=== PATIENT | female | born 1995 | race Caucasian/White ===

== ENCOUNTER → 2021-01-20 11:58 | Outpatient (CLI) | payer BC, SELFPAY ==
[2021-01-20 13:06] LABS: Add Manual Diff / Slide Review NO; Basophils Absolute Auto 0 /uL (0-100); Basophils Percent Auto 0.2 % (0-2); Eosinophils Absolute Auto 100 /uL (0-450); Eosinophils Percent Auto 0.7 % (2-4); Hematocrit 36.1 % (36-46); Hemoglobin 12.2 g/dL (12.0-16.0); Lymphocytes Absolute Auto 2200 /uL (1100-4500); Lymphocytes Percent Auto 15.9 % (25-40); Mean Corpuscular HGB Conc 33.8 % (30-36); Mean Corpuscular Hemoglobin 30.2 PG (26-34); Mean Corpuscular Volume 89.3 fL (80-100); Monocytes Absolute Auto 800 /uL (0-900); Neutrophils Absolute Auto 10600 /uL (1500-7000); Neutrophils Percent Auto 77.2 % (50-75); Platelet Count 234 X10^3/uL (150-400); Red Blood Cell Count 4.04 X10^6/uL (4.0-5.2); Red Cell Distribution Width 12.8 % (11.6-14.8); White Blood Cell Count 13.8 X10^3/uL (4.5-11.0)
[2021-01-20 13:18] LABS: Alanine Aminotransferase 17 IU/L (<35); Albumin 3.8 g/dL (3.5-5.0); Albumin Globulin Ratio 1.2 (1.0-2.8); Alkaline Phosphatase 119 U/L (38-126); Aspartate Aminotransferase 24 IU/L (14-36); BUN Creatinine Ratio 12.8 (6-22); Bilirubin Total 0.2 mg/dL (0.2-1.3); Blood Urea Nitrogen 5 mg/dL (7-17); Calcium 9.2 mg/dL (8.4-10.2); Carbon Dioxide 23 mmol/L (22-32); Chloride 104 mmol/L (98-107); Estimated Glomerular Filt Rate > 60.0 mL/min (>60); Globulin 3.3 g/dL (1.7-4.1); Glucose 88 mg/dL (70-100); HEMOLYSIS < 15 (0-50); Potassium 4.2 mmol/L (3.4-5.1); Sodium 136 mmol/L (137-145); Total Protein 7.1 g/dL (6.3-8.2)
[2021-01-20 15:33] LABS: Creatinine Urine Random 83.1 mg/dL; Protein (Total) Urine Random 13 mg/dL (0-12); Protein Creatinine Ratio Urine 0.15 GRAM/24H
== END ==
PROVIDERS: PCP Family Medicine; Referring Provider Family Medicine; Visit Provider Family Medicine
DX: Z34.03 Encounter for supervision of normal first pregnancy, third trimester (principal); H53.9 Unspecified visual disturbance; R51.9 Headache, unspecified; Z3A.30 30 weeks gestation of pregnancy
CPT/HCPCS: 36415; 80053; 82570; 84156; 85025

== ENCOUNTER 2021-02-19 15:50 | Observation (INO) | payer OTHER, SELFPAY ==
[2021-02-19 17:31] LABS: Alanine Aminotransferase 16 IU/L (<35); Albumin 3.4 g/dL (3.5-5.0); Albumin Globulin Ratio 1.2 (1.0-2.8); Alkaline Phosphatase 127 U/L (38-126); Aspartate Aminotransferase 28 IU/L (14-36); BUN Creatinine Ratio 11.1 (6-22); Bilirubin Total 0.2 mg/dL (0.2-1.3); Blood Urea Nitrogen 4 mg/dL (7-17); Calcium 8.5 mg/dL (8.4-10.2); Carbon Dioxide 22 mmol/L (22-32); Chloride 107 mmol/L (98-107); Estimated Glomerular Filt Rate > 60.0 mL/min (>60); Globulin 2.9 g/dL (1.7-4.1); Glucose 102 mg/dL (70-100); HEMOLYSIS < 15 (0-50); Potassium 3.6 mmol/L (3.4-5.1); Sodium 136 mmol/L (137-145); Total Protein 6.3 g/dL (6.3-8.2); Uric Acid 3.9 mg/dL (2.5-6.2)
--- NOTE | 2021-02-19 17:32 | P.TNLD_ITS ---
Visit Information Visit Information Date of evaluation: 02/19/21 Primary OB Provider: Mindi Osman Reason for Evaluation: Yes other Comments/Additional reasons for admission: 25yo at 34w4d here due to headache and elevated blood pressure. Pt reports that she continues to have intermittent headaches. This afternoon it was more severe. She took her blood pressure, as was requested in clinic, and it was 143/65. She denies any sign ificant vision changes today. Mild swelling. No RUQ pain. She is feeling her baby move regularly. No vaginal bleeding or LOF. [facility] Medical History (Updated 02/21/21 @ 15:57 by Mindi Osman MD) Back pain (~2011) Benign neoplasm of skin (~2013) Bursitis of left elbow (~2016) Kalani infection (~2020) Carpal tunnel syndrome, bilateral (~2014) Constipation (~2020) GERD (gastroesophageal reflux disease) (~2009) Migraine (~2009) Mild scoliosis (~2013) Nasal polyp (~2013) Otitis media, unspecified, bilateral Restless leg syndrome (~2020) Verruca vulgaris Wrist fracture Surgical History (Updated 01/03/21 @ 15:39 by Trudy Solo RN) History of nasal surgery (~2013) [place] teeth extracted Family History (Updated 01/03/21 @ 15:55 by Trudy Solo RN) Mother Hypertension Diverticulitis H/O: hysterectomy Father Skin cancer (melanoma) Alcohol abuse Drug abuse Grandmother Diabetes mellitus Grandfather Kidney failure Dialysis patient Diabetes mellitus Stroke Grandmother Breast cancer Grandfather Cancer of nasal cavities Basal cell carcinoma Lung cancer Brother Drug abuse ADHD Depression Social History marital status: unmarried,living together household members: significant other lives independently: Yes caregiver/support person: No housing: house pets and animals: No education level: college (AA degree) 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. ) current occupational exposures/hazards: Yes ([employer]. ) special juan josé needs: No seatbelt use: always do you feel safe at home: Yes Smoking Status: Former smoker (Quit with . Had been 10 cigs/day.) Tobacco: How many years used: 9 quit status: has quit before second hand exposure: No alcohol intake: never substance use type: does not use during the past year weight has: remained stable well-balanced diet: daily or most days daily servings fruits/ve-4 caffeine: Yes (2-3 cups of coffee many days, sometimes less. 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 ) frequency: does not exercise Objective Labs Result Diagrams: 02/19/21 16:35 02/19/21 16:35 Evaluation Evaluation Baseline heart rate: 145 Variability: Moderate (11-25) monitor accelerations: Present Monitor Decelerations: Absent Category of Tracing: Reactive Diagnosis, Plan/Disposition Final Diagnosis (1) 34 weeks gestation of : Status: Acute (2) Headache: Status: Acute (3) Elevated blood pressure affecting in third trimester, antepartum: Status: Acute Plan/Disposition Plan: 25yo at 34w4d here for headache and elevated blood pressure reading at home. Normal BPs while here, all in the 110s/60-70s. Symptoms improved. Lab work without evidence pre-eclampsia/HELLP. Stable for d/c home. Recommend checking BPs at home daily. Pt aware of values that prompt additional evaluation. Discussed symptoms to be aware of. OB Disposition: home
[2021-02-19 18:02] LABS: RBC Urine None Seen (0-5/HPF)
[2021-02-19 18:03] LABS: Appearance Urine UA CLEAR; Bilirubin Urine UA NEGATIVE (NEGATIVE); Color Urine UA YELLOW; Glucose Urine UA NEGATIVE (Negative); Ketones Urine UA TRACE (NEGATIVE); Leukocyte Esterase Urine UA NEGATIVE (NEGATIVE); Nitrite Urine UA NEGATIVE (Negative); Occult Blood Urine UA NEGATIVE (Negative); Protein Urine UA NEGATIVE (Negative); Specific Gravity Urine UA <=1.005 (1.000-1.035); Urobilinogen Urine UA 0.2 E.U./dL (0.2)
[2021-02-19 18:23] LABS: Bacteria Urine Few (2-10); Culture Indicated Urine Cult Not Indicated; Squamous Epithelial Cell Urine 5-10 /HPF (0-5/HPF); WBC Urine 0-1/HPF (0-5/HPF)
[2021-02-19 19:10] LABS: Add Manual Diff / Slide Review NO; Basophils Absolute Auto 0 /uL (0-100); Basophils Percent Auto 0.2 % (0-2); Eosinophils Absolute Auto 100 /uL (0-450); Eosinophils Percent Auto 0.4 % (2-4); Hematocrit 31.6 % (36-46); Hemoglobin 10.9 g/dL (12.0-16.0); Lymphocytes Absolute Auto 2300 /uL (1100-4500); Lymphocytes Percent Auto 15.4 % (25-40); Mean Corpuscular HGB Conc 34.6 % (30-36); Mean Corpuscular Hemoglobin 30.4 PG (26-34); Mean Corpuscular Volume 87.7 fL (80-100); Monocytes Absolute Auto 800 /uL (0-900); Monocytes Percent Auto 5.4 % (3-14); Neutrophils Absolute Auto 11500 /uL (1500-7000); Neutrophils Percent Auto 78.6 % (50-75); Platelet Count 216 X10^3/uL (150-400); Red Cell Distribution Width 12.8 % (11.6-14.8); White Blood Cell Count 14.7 X10^3/uL (4.5-11.0)
[2021-02-19 20:24] LABS: Creatinine Urine Random 52.9 mg/dL; Protein (Total) Urine Random 9 mg/dL (0-12); Protein Creatinine Ratio Urine 0.17 GRAM/24H
== END 2021-02-19 19:40 | disposition home or self-care (01) ==
PROVIDERS: Admitting Provider Family Medicine; PCP Family Medicine; Referring Provider Family Medicine; Visit Provider Family Medicine
DX: O13.3 Gestational [pregnancy-induced] hypertension without significant proteinuria, third trimester (principal); O26.893 Other specified pregnancy related conditions, third trimester; R51.9 Headache, unspecified; Z3A.34 34 weeks gestation of pregnancy
CPT/HCPCS: 59025; 80053; 81001; 82570; 84156; 84550; 85025; 96360; G0378; G0379

== ENCOUNTER 2021-02-23 18:50 | Outpatient (CLI) | payer OTHER, SELFPAY ==
--- NOTE | 2021-02-24 07:49 | PM.OBTRLD ---
Visit Information Visit Information Date of evaluation: 02/23/21 Primary OB Provider: Mindi Osman On-call OB Provider: Lana Ramírez [facility] Medical History (Updated 02/21/21 @ 15:57 by Mindi Osman MD) Back pain (~2011) Benign neoplasm of skin (~2013) Bursitis of left elbow (~2016) Kalani infection (~2020) Carpal tunnel syndrome, bilateral (~2014) Constipation (~2020) GERD (gastroesophageal reflux disease) (~2009) Migraine (~2009) Mild scoliosis (~2013) Nasal polyp (~2013) Otitis media, unspecified, bilateral Restless leg syndrome (~2020) Verruca vulgaris Wrist fracture Surgical History (Updated 01/03/21 @ 15:39 by Trudy Solo RN) History of nasal surgery (~2013) [place] teeth extracted Family History (Updated 01/03/21 @ 15:55 by Trudy Solo RN) Mother Hypertension Diverticulitis H/O: hysterectomy Father Skin cancer (melanoma) Alcohol abuse Drug abuse Grandmother Diabetes mellitus Grandfather Kidney failure Dialysis patient Diabetes mellitus Stroke Grandmother Breast cancer Grandfather Cancer of nasal cavities Basal cell carcinoma Lung cancer Brother Drug abuse ADHD Depression Social History marital status: unmarried,living together household members: significant other lives independently: Yes caregiver/support person: No housing: house pets and animals: No education level: college (AA degree) 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 ) current occupational exposures/hazards: Yes ([employer]. ) special juan josé needs: No seatbelt use: always do you feel safe at home: Yes Smoking Status: Former smoker (Quit with . Had been 10 cigs/day.) Tobacco: How many years used: 9 quit status: has quit before second hand exposure: No alcohol intake: never substance use type: does not use during the past year weight has: remained stable well-balanced diet: daily or most days daily servings fruits/ve-4 caffeine: Yes (2-3 cups of coffee many days, sometimes less. 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 ) frequency: does not exercise Review of Systems Review of Systems Narrative: Patient called complaining of elevated blood pressures at home and headache. She comes to Labor and delivery for a nonstress test and blood pressure check. Exam Narrative Exam Narrative: Blood pressures in the 110s over 70s Evaluation Evaluation Baseline heart rate: 140 Variability: Average (6-10) monitor accelerations: Present (X1) Monitor Decelerations: Absent Diagnosis, Plan/Disposition Plan/Disposition Plan: Assessment: 25-year-old 1 para 0 at 35 weeks gestation with gestational hypertension Blood pressure is normal here on Labor and delivery Plan: Signs and symptoms of preeclampsia reviewed OB Disposition: home
== END 2021-02-23 19:47 | disposition home or self-care (01) ==
LOC: OB 02-26 15:06
PROVIDERS: PCP Family Medicine; Referring Provider Obstetrics & Gynecology; Visit Provider Obstetrics & Gynecology
DX: O13.3 Gestational [pregnancy-induced] hypertension without significant proteinuria, third trimester (principal); Z3A.35 35 weeks gestation of pregnancy
CPT/HCPCS: 59025; G0378; G0379

== ENCOUNTER 2021-02-24 10:27 | Outpatient (CLI) | payer OTHER, SELFPAY | END 2021-02-24 11:03 | disposition home or self-care (01) | LOC: LABOR 10:52 → OB 02-26 15:06 | PROVIDERS: PCP Family Medicine; Referring Provider Obstetrics & Gynecology; Visit Provider Obstetrics & Gynecology | DX: O26.893 Other specified pregnancy related conditions, third trimester (principal); M54.5 Low back pain; Z3A.35 35 weeks gestation of pregnancy | CPT/HCPCS: 59025; G0378; G0379 ==

== ENCOUNTER 2021-02-27 15:21 | Outpatient (CLI) | payer OTHER, SELFPAY ==
--- NOTE | 2021-02-27 16:58 | PM.OBTRLD ---
Visit Information Visit Information Date of evaluation: 02/27/21 Primary OB Provider: Mindi Osman Reason for Evaluation: Yes non-stress test non-stress test reason: hypertension/pre-eclampsia Comments/Additional reasons for admission: 25yo at 35w4d who presented for NST due to elevated blood pressures at home, likely gestational hypertension. Pt has been having intermittent headaches, none currently. Swelling is stable. No vision changes or RUQ pain. She is feeling her baby move regularly. No LOF or vaginal bleeding. COUNTS INCLUDE 234 BEDS AT [facility] Medical History (Updated 02/28/21 @ 09:51 by Mindi Osman MD) Back pain (~2011) Benign neoplasm of skin (~2013) Bursitis of left elbow (~2016) Kalani infection (~2020) Carpal tunnel syndrome, bilateral (~2014) Constipation (~2020) GERD (gastroesophageal reflux disease) (~2009) Migraine (~2009) Mild scoliosis (~2013) Nasal polyp (~2013) Otitis media, unspecified, bilateral Restless leg syndrome (~2020) Verruca vulgaris Wrist fracture Surgical History (Updated 01/03/21 @ 15:39 by Trudy Solo RN) History of nasal surgery (~2013) [place] teeth extracted Family History (Updated 01/03/21 @ 15:55 by Trudy Solo RN) Mother Hypertension Diverticulitis H/O: hysterectomy Father Skin cancer (melanoma) Alcohol abuse Drug abuse Grandmother Diabetes mellitus Grandfather Kidney failure Dialysis patient Diabetes mellitus Stroke Grandmother Breast cancer Grandfather Cancer of nasal cavities Basal cell carcinoma Lung cancer Brother Drug abuse ADHD Depression Social History marital status: unmarried,living together household members: significant other lives independently: Yes caregiver/support person: No housing: house pets and animals: No education level: college (AA degree) occupational status: employed (MA at [employer], [employer]. ) current occupational exposures/hazards: Yes ([employer]. ) special juan josé needs: No seatbelt use: always do you feel safe at home: Yes Smoking Status: Former smoker (Quit with . Had been 10 cigs/day.) Tobacco: How many years used: 9 quit status: has quit before second hand exposure: No alcohol intake: never substance use type: does not use during the past year weight has: remained stable well-balanced diet: daily or most days daily servings fruits/ve-4 caffeine: Yes (2-3 cups of coffee many days, sometimes less. 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 ) frequency: does not exercise Evaluation Evaluation Baseline heart rate: 150 Variability: Moderate (11-25) monitor accelerations: Present Monitor Decelerations: Absent Diagnosis, Plan/Disposition Final Diagnosis (1) Elevated blood pressure affecting in third trimester, antepartum: Status: Acute (2) 35 weeks gestation of : Status: Acute Plan/Disposition Plan: 25yo at 35w4d who presented for NST due to elevated blood pressures at home, likely gestational hypertension. Reactive NST. Labs from earlier this week negative. Recommend continuing to check BPs at home regularly. F/U scheduled for 3 days. Will review BPs at that time. If any elevated, plan to diagnose with gHTN - obtain weekly labs, biweekly NST, growth scan, plan for IOL at 37 weeks. OB Disposition: home
== END 2021-02-27 15:50 | disposition home or self-care (01) ==
LOC: LABOR 15:23 → OB 02-28 08:46
PROVIDERS: PCP Family Medicine; Referring Provider Family Medicine; Visit Provider Family Medicine
DX: O26.893 Other specified pregnancy related conditions, third trimester (principal); R03.0 Elevated blood-pressure reading, without diagnosis of hypertension; Z3A.35 35 weeks gestation of pregnancy
CPT/HCPCS: 59025; G0378; G0379

== ENCOUNTER → 2021-02-28 15:57 | Outpatient (CLI) | payer OTHER, SELFPAY ==
[2021-02-28 16:13] LABS: Add Manual Diff / Slide Review NO; Basophils Absolute Auto 0 /uL (0-100); Basophils Percent Auto 0.1 % (0-2); Eosinophils Absolute Auto 100 /uL (0-450); Eosinophils Percent Auto 0.5 % (2-4); Hematocrit 32.8 % (36-46); Hemoglobin 11.3 g/dL (12.0-16.0); Lymphocytes Absolute Auto 1900 /uL (1100-4500); Lymphocytes Percent Auto 15.3 % (25-40); Mean Corpuscular HGB Conc 34.6 % (30-36); Mean Corpuscular Hemoglobin 30.2 PG (26-34); Mean Corpuscular Volume 87.3 fL (80-100); Monocytes Absolute Auto 600 /uL (0-900); Monocytes Percent Auto 5.1 % (3-14); Neutrophils Absolute Auto 9700 /uL (1500-7000); Platelet Count 222 X10^3/uL (150-400); Red Blood Cell Count 3.75 X10^6/uL (4.0-5.2); Red Cell Distribution Width 12.8 % (11.6-14.8); White Blood Cell Count 12.3 X10^3/uL (4.5-11.0)
[2021-02-28 17:21] LABS: Alanine Aminotransferase 14 IU/L (<35); Albumin 3.3 g/dL (3.5-5.0); Albumin Globulin Ratio 1.1 (1.0-2.8); Alkaline Phosphatase 116 U/L (38-126); Aspartate Aminotransferase 25 IU/L (14-36); BUN Creatinine Ratio 11.1 (6-22); Bilirubin Total 0.2 mg/dL (0.2-1.3); Blood Urea Nitrogen 5 mg/dL (7-17); Calcium 8.5 mg/dL (8.4-10.2); Carbon Dioxide 23 mmol/L (22-32); Chloride 107 mmol/L (98-107); Estimated Glomerular Filt Rate > 60.0 mL/min (>60); Glucose 123 mg/dL (70-100); HEMOLYSIS < 15 (0-50); Potassium 3.8 mmol/L (3.4-5.1); Sodium 137 mmol/L (137-145); Total Protein 6.3 g/dL (6.3-8.2)
[2021-02-28 17:57] LABS: Creatinine Urine Random 55.8 mg/dL; Protein (Total) Urine Random 11 mg/dL (0-12); Protein Creatinine Ratio Urine 0.19 GRAM/24H
== END ==
PROVIDERS: PCP Family Medicine; Referring Provider Family Medicine; Visit Provider Family Medicine
DX: Z34.90 Encounter for supervision of normal pregnancy, unspecified, unspecified trimester (principal); Z3A.35 35 weeks gestation of pregnancy
CPT/HCPCS: 36415; 80053; 82570; 84156; 85025

== ENCOUNTER → 2021-03-03 07:12 | Outpatient (CLI) | payer OTHER, SELFPAY ==
--- NOTE | 2021-03-03 07:13 | DI.US.S_ITS ---
PROCEDURE: US OB LIMITED INDICATIONS: EFW OUTSIDE/PRIOR DATING DATA: Last menstrual period (LMP): 06/23/2020. LMP-based estimated date of delivery (NICOLE): 03/30/2021. First dating scan (date and location): 08/26/2020. Estimated date of delivery (NICOLE) from first dating scan: 03/29/2021. TECHNIQUE: Real-time scanning was performed of the fetus, with biometry and image documentation. Endovaginal scanning: Not performed COMPARISON: [facility], US, US OB LIMITED, 11/26/2020, 14:44. FINDINGS: A single living intrauterine gestation is present. Presentation: Vertex. Placenta: Placental position is posterior, without previa. Amniotic fluid index: 15.4 cm, normal range is 5-24 cm. heart rate: 145 beats per minute. Maternal cervical canal: Not seen. BPD: 9.6 cm, 39 weeks 3 days. 99th percentile. HC: 35.2 cm, 41 weeks 0 days. 99th percentile. AC: 34.5 cm, 38 weeks 3 days. 97th percentile. FL: 7.1 cm, 36 weeks 3 days. 50th percentile. Estimated gestational age from initial scan: 36 weeks 2 days. Estimated gestational age from today's scan: 38 weeks 6 days. Estimated weight and percentile: 3470 g, 96 percentile. IMPRESSION: 1. Jung living intrauterine at 38 weeks 6 days based on today's ultrasound. This is concordant with the 1st trimester ultrasound +/-3 weeks. Fetus is in the 96 percentile for weight. Concern for macrosomia. Vertex position. 2. Normal placenta and amniotic fluid. Dictated by: Radu Madrid M.D. on 03/19/2021 at 8:12 Approved by: Radu Madrid M.D. on 03/19/2021 at 8:20
[2021-03-03 08:28] LABS: Collection Time Urine 24 Hours; Protein (Total) Urine Random 13 mg/dL (0-12); Total Protein 24 Hour Urine 377 mg/day (42-225); Total Volume Urine 2900 mL
== END ==
PROVIDERS: PCP Family Medicine; Referring Provider Family Medicine; Visit Provider Family Medicine
DX: Z3A.35 35 weeks gestation of pregnancy (principal)
CPT/HCPCS: 76815; 84156

== ENCOUNTER → 2021-03-03 11:12 | Outpatient (CLI) | payer OTHER, SELFPAY ==
[2021-03-04 07:58] LABS: Strep Grp B PCR NEG for Grp B Strep
== END ==
PROVIDERS: PCP Family Medicine; Visit Provider Family Medicine
DX: Z34.93 Encounter for supervision of normal pregnancy, unspecified, third trimester (principal); Z3A.35 35 weeks gestation of pregnancy
CPT/HCPCS: 87653

== ENCOUNTER 2021-03-03 11:44 | Outpatient (CLI) | payer OTHER, SELFPAY ==
--- NOTE | 2021-03-03 13:04 | P.TNLD_ITS ---
Visit Information Visit Information Date of evaluation: 03/03/21 Primary OB Provider: Mindi Osman Reason for Evaluation: Yes non-stress test non-stress test reason: hypertension/pre-eclampsia Comments/Additional reasons for admission: 25yo at 36w2d who presents for NST for pre-eclampsia without severe features. The pt denies any worsening headaches or swelling, RUQ pain, or vision changes. She is feeling her baby move regularly. No LOF or vaginal bleeding. [facility] Medical History (Updated 03/03/21 @ 13:08 by Mindi Osman MD) Back pain (~2011) Benign neoplasm of skin (~2013) Bursitis of left elbow (~2016) Kalani infection (~2020) Carpal tunnel syndrome, bilateral (~2014) Constipation (~2020) GERD (gastroesophageal reflux disease) (~2009) Migraine (~2009) Mild scoliosis (~2013) Nasal polyp (~2013) Otitis media, unspecified, bilateral Restless leg syndrome (~2020) Verruca vulgaris Wrist fracture Surgical History (Updated 01/03/21 @ 15:39 by Trudy Solo RN) History of nasal surgery (~2013) [place] teeth extracted Family History (Updated 01/03/21 @ 15:55 by Trudy Solo RN) Mother Hypertension Diverticulitis H/O: hysterectomy Father Skin cancer (melanoma) Alcohol abuse Drug abuse Grandmother Diabetes mellitus Grandfather Kidney failure Dialysis patient Diabetes mellitus Stroke Grandmother Breast cancer Grandfather Cancer of nasal cavities Basal cell carcinoma Lung cancer Brother Drug abuse ADHD Depression Social History marital status: unmarried,living together household members: significant other lives independently: Yes caregiver/support person: No housing: house pets and animals: No education level: college (AA degree) 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 ) current occupational exposures/hazards: Yes ([employer]. ) special juan josé needs: No seatbelt use: always do you feel safe at home: Yes Smoking Status: Former smoker (Quit with . Had been 10 cigs/day.) Tobacco: How many years used: 9 quit status: has quit before second hand exposure: No alcohol intake: never substance use type: does not use during the past year weight has: remained stable well-balanced diet: daily or most days daily servings fruits/ve-4 caffeine: Yes (2-3 cups of coffee many days, sometimes less. 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 ) frequency: does not exercise Evaluation Evaluation Baseline heart rate: 150 Variability: Moderate (11-25) monitor accelerations: Present Monitor Decelerations: Absent Category of Tracing: Reactive Diagnosis, Plan/Disposition Final Diagnosis (1) 36 weeks gestation of : Status: Acute (2) Pre-eclampsia: Status: Acute Plan/Disposition Plan: 25yo at 36w2d who presents for NST for pre-eclampsia without severe features. NST reactive. Plan for repeat NST on 03/06 with labs at that time. Pt monitoring BPs at home. OB Disposition: home
== END 2021-03-03 12:35 | disposition home or self-care (01) ==
LOC: LABOR 12:14 → OB 03-04 07:44
PROVIDERS: PCP Family Medicine; Referring Provider Family Medicine; Visit Provider Family Medicine
DX: O14.03 Mild to moderate pre-eclampsia, third trimester (principal); O47.03 False labor before 37 completed weeks of gestation, third trimester; Z3A.36 36 weeks gestation of pregnancy; Z34.93 Encounter for supervision of normal pregnancy, unspecified, third trimester; Z3A.35 35 weeks gestation of pregnancy
CPT/HCPCS: 59025; 76815; 84156; 87653; G0378; G0379

== ENCOUNTER 2021-03-06 10:02 | Observation (INO) | payer OTHER, SELFPAY ==
--- NOTE | 2021-03-06 10:39 | PM.OBTRLD ---
Visit Information Visit Information Date of evaluation: 03/06/21 Primary OB Provider: Mindi Osman Reason for Evaluation: Yes non-stress test non-stress test reason: hypertension/pre-eclampsia Comments/Additional reasons for admission: 25yo at 36w5d here for NST for pre-eclampsia without severe features. Pt denies headache, vision changes, worsening LE edema, RUQ abdominal pain. She is feeling her baby move regularly. No LOF or vaginal bleeding. [facility] Medical History (Updated 03/03/21 @ 13:08 by Mindi Osman MD) Back pain (~2011) Benign neoplasm of skin (~2013) Bursitis of left elbow (~2016) Kalani infection (~2020) Carpal tunnel syndrome, bilateral (~2014) Constipation (~2020) GERD (gastroesophageal reflux disease) (~2009) Migraine (~2009) Mild scoliosis (~2013) Nasal polyp (~2013) Otitis media, unspecified, bilateral Restless leg syndrome (~2020) Verruca vulgaris Wrist fracture Surgical History (Updated 01/03/21 @ 15:39 by Trudy Solo RN) History of nasal surgery (~2013) [place] teeth extracted Family History (Updated 01/03/21 @ 15:55 by Trudy Solo RN) Mother Hypertension Diverticulitis H/O: hysterectomy Father Skin cancer (melanoma) Alcohol abuse Drug abuse Grandmother Diabetes mellitus Grandfather Kidney failure Dialysis patient Diabetes mellitus Stroke Grandmother Breast cancer Grandfather Cancer of nasal cavities Basal cell carcinoma Lung cancer Brother Drug abuse ADHD Depression Social History marital status: unmarried,living together household members: significant other lives independently: Yes caregiver/support person: No housing: house pets and animals: No education level: college (AA degree) 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 ) current occupational exposures/hazards: Yes ([employer]. ) special juan josé needs: No seatbelt use: always do you feel safe at home: Yes Smoking Status: Former smoker (Quit with . Had been 10 cigs/day.) Tobacco: How many years used: 9 quit status: has quit before second hand exposure: No alcohol intake: never substance use type: does not use during the past year weight has: remained stable well-balanced diet: daily or most days daily servings fruits/ve-4 caffeine: Yes (2-3 cups of coffee many days, sometimes less. 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 ) frequency: does not exercise Evaluation Evaluation Baseline heart rate: 150 Variability: Moderate (11-25) monitor accelerations: Present Monitor Decelerations: Absent Category of Tracing: Reactive Diagnosis, Plan/Disposition Final Diagnosis (1) Pre-eclampsia: Status: Acute (2) 36 weeks gestation of : Status: Acute Plan/Disposition Plan: 25yo at 36w5d here for NST for pre-eclampsia without severe features. NST reactive. Labs without evidence of HELLP. IOL scheduled for 37w1d. OB Disposition: home
[2021-03-06 11:11] LABS: Add Manual Diff / Slide Review NO; Basophils Absolute Auto 0 /uL (0-100); Basophils Percent Auto 0.3 % (0-2); Eosinophils Absolute Auto 100 /uL (0-450); Eosinophils Percent Auto 0.5 % (2-4); Hemoglobin 10.6 g/dL (12.0-16.0); Lymphocytes Absolute Auto 1700 /uL (1100-4500); Lymphocytes Percent Auto 14.9 % (25-40); Mean Corpuscular HGB Conc 34.3 % (30-36); Mean Corpuscular Hemoglobin 29.6 PG (26-34); Mean Corpuscular Volume 86.2 fL (80-100); Monocytes Absolute Auto 800 /uL (0-900); Monocytes Percent Auto 7.1 % (3-14); Neutrophils Absolute Auto 8900 /uL (1500-7000); Neutrophils Percent Auto 77.2 % (50-75); Platelet Count 212 X10^3/uL (150-400); Red Blood Cell Count 3.59 X10^6/uL (4.0-5.2); White Blood Cell Count 11.5 X10^3/uL (4.5-11.0)
[2021-03-06 11:27] LABS: Alanine Aminotransferase 14 IU/L (<35); Albumin 3.3 g/dL (3.5-5.0); Albumin Globulin Ratio 1.1 (1.0-2.8); Alkaline Phosphatase 115 U/L (38-126); Aspartate Aminotransferase 26 IU/L (14-36); BUN Creatinine Ratio 11.4 (6-22); Bilirubin Total 0.2 mg/dL (0.2-1.3); Blood Urea Nitrogen 5 mg/dL (7-17); Carbon Dioxide 23 mmol/L (22-32); Chloride 107 mmol/L (98-107); Estimated Glomerular Filt Rate > 60.0 mL/min (>60); Glucose 107 mg/dL (70-100); HEMOLYSIS < 15 (0-50); Potassium 3.8 mmol/L (3.4-5.1); Sodium 135 mmol/L (137-145); Total Protein 6.3 g/dL (6.3-8.2)
== END 2021-03-06 11:46 | disposition home or self-care (01) ==
PROVIDERS: Admitting Provider Family Medicine; PCP Family Medicine; Referring Provider Family Medicine; Visit Provider Family Medicine
DX: O14.03 Mild to moderate pre-eclampsia, third trimester (principal); Z3A.36 36 weeks gestation of pregnancy
CPT/HCPCS: 59025; 80053; 85025; G0378; G0379

== ENCOUNTER 2021-03-10 17:45 | Inpatient (IN) | payer OTHER, SELFPAY ==
[2021-03-10 18:09] VITALS: BP 143/76
[2021-03-10 18:44] LABS: Add Manual Diff / Slide Review NO; Basophils Absolute Auto 0 /uL (0-100); Basophils Percent Auto 0.1 % (0-2); Eosinophils Absolute Auto 0 /uL (0-450); Eosinophils Percent Auto 0.3 % (2-4); Hematocrit 33.3 % (36-46); Hemoglobin 11.5 g/dL (12.0-16.0); Lymphocytes Absolute Auto 2200 /uL (1100-4500); Lymphocytes Percent Auto 14.7 % (25-40); Mean Corpuscular HGB Conc 34.4 % (30-36); Mean Corpuscular Hemoglobin 29.7 PG (26-34); Mean Corpuscular Volume 86.3 fL (80-100); Monocytes Absolute Auto 700 /uL (0-900); Neutrophils Absolute Auto 11800 /uL (1500-7000); Neutrophils Percent Auto 79.9 % (50-75); Platelet Count 224 X10^3/uL (150-400); Red Blood Cell Count 3.86 X10^6/uL (4.0-5.2); Red Cell Distribution Width 12.9 % (11.6-14.8); White Blood Cell Count 14.8 X10^3/uL (4.5-11.0)
[2021-03-10 19:28] LABS: Alanine Aminotransferase 18 IU/L (<35); Albumin 3.6 g/dL (3.5-5.0); Albumin Globulin Ratio 1.1 (1.0-2.8); Alkaline Phosphatase 145 U/L (38-126); Aspartate Aminotransferase 33 IU/L (14-36); BUN Creatinine Ratio 14.3 (6-22); Bilirubin Total 0.3 mg/dL (0.2-1.3); Blood Urea Nitrogen 7 mg/dL (7-17); Calcium 9.7 mg/dL (8.4-10.2); Carbon Dioxide 22 mmol/L (22-32); Chloride 105 mmol/L (98-107); Estimated Glomerular Filt Rate > 60.0 mL/min (>60); Globulin 3.2 g/dL (1.7-4.1); Glucose 92 mg/dL (70-100); HEMOLYSIS < 15 (0-50); Potassium 3.6 mmol/L (3.4-5.1); Sodium 136 mmol/L (137-145); Total Protein 6.8 g/dL (6.3-8.2)
[2021-03-10 20:01] LABS: COVID19 - ADMIT (NP swab/PCR) Negative (Negative)
[2021-03-10] MEDS: CALCIUM CARBONATE 500 MG TAB PO (20:25)
[2021-03-10] MEDS: DINOPROSTONE VAG (CERVIDIL) 10 MG VAG (20:45)
[2021-03-11] MEDS: ZOLPIDEM 5 MG TABLET PO (00:44)
--- NOTE | 2021-03-11 08:37 | PM.OBHP.1 ---
OB HPI Date/Time Date of admission: 03/10/21 Date Patient Seen: 03/11/21 Time Patient Seen: 06:30 History of Present Condition Chief complaint: INDUCTION : 1 Para: 0 Estimated Date of Delivery: 03/29/21 Estimated Gestational Age (weeks): 37w3d Narrative: Leonor Allen is a 25 year old at 37w3d here for IOL due to pre-eclampsia without severe features. The pt denies any recent contractions, vaginal bleeding, LOF. She is feeling her baby move regularly. No headaches, RUQ pain, LE edema, vision changes. Her was complicated by gestational hypertension diagnosed 02/28. She then had an elevated 24hr protein of 377 on 03/03 and was diagnosed with pre-eclampsia. Since then, her BPs have remained primarily < 140/90, with only occasional values in the low 140s. The pt was also noted to have an LGA on ultrasound 03/03 with EFW 95th percentile. Indications Indication for induction OB: other (pre-eclampsia) History of Present care: good care, initiated at week # (10) and pounds weight gain (33) Dating criteria: LMP confirmed by 1st trimester US Ultrasounds: normal 1st trimester US and normal mid trimester US Obstetrical complications: preeclampsia and gestational hypertension Medical complications: none Preadmission Labs Blood type: O (+) positive -: Antibody screen: negative, GBS status: negative, HBsAG: negative, HIV: negative and RPR/VDLR: negative -: Rubella: not immune and Varicella: immune HCT: 31.0 HCAB: negative PAP: Normal 1 hr GTT: 126 Evaluation Evaluation Baseline heart rate: 155 Variability: Moderate (11-25) monitor accelerations: Present Monitor Decelerations: Absent Contraction Frequency (minutes): 3 Uterine Contraction Intensity: Mild Status: Category l Cervical dilation (cm): 1 Cervical effacement (%): 80 station: -3 Laboratory results: Laboratory Tests 03/10/21 03/10/21 03/10/21 18:30 18:30 18:30 WBC 14.8 H RBC 3.86 L Hgb 11.5 L Hct 33.3 L MCV 86.3 MCH 29.7 MCHC 34.4 RDW 12.9 Plt Count 224 Neut % (Auto) 79.9 H Lymph % (Auto) 14.7 L Cassia % (Auto) 5.0 Eos % (Auto) 0.3 L Baso % (Auto) 0.1 Neut # (Auto) 93862 H Lymph # (Auto) 2200 Cassia # (Auto) 700 Eos # (Auto) 0 Baso # (Auto) 0 Sodium 136 L Potassium 3.6 Chloride 105 Carbon Dioxide 22 BUN 7 Creatinine 0.49 L Estimated GFR > 60.0 BUN/Creatinine Ratio 14.3 Glucose 92 Calcium 9.7 Total Bilirubin 0.3 AST 33 ALT 18 Alkaline Phosphatase 145 H Total Protein 6.8 Albumin 3.6 Globulin 3.2 Albumin/Globulin Ratio 1.1 SARS-CoV-2 (PCR) Blood Type O Positive Antibody Screen Negative 03/10/21 18:30 WBC RBC Hgb Hct MCV MCH MCHC RDW Plt Count Neut % (Auto) Lymph % (Auto) Cassia % (Auto) Eos % (Auto) Baso % (Auto) Neut # (Auto) Lymph # (Auto) Cassia # (Auto) Eos # (Auto) Baso # (Auto) Sodium Potassium Chloride Carbon Dioxide BUN Creatinine Estimated GFR BUN/Creatinine Ratio Glucose Calcium Total Bilirubin AST ALT Alkaline Phosphatase Total Protein Albumin Globulin Albumin/Globulin Ratio SARS-CoV-2 (PCR) Negative Blood Type Antibody Screen [facility] Medical History (Updated 03/03/21 @ 13:08 by Mindi Osman MD) Back pain (~2011) Benign neoplasm of skin (~2013) Bursitis of left elbow (~2016) Kalani infection (~2020) Carpal tunnel syndrome, bilateral (~2014) Constipation (~2020) GERD (gastroesophageal reflux disease) (~2009) Migraine (~2009) Mild scoliosis (~2013) Nasal polyp (~2013) Otitis media, unspecified, bilateral Restless leg syndrome (~2020) Verruca vulgaris Wrist fracture Surgical History (Updated 01/03/21 @ 15:39 by Trudy Solo RN) History of nasal surgery (~2013) [place] teeth extracted Family History (Updated 01/03/21 @ 15:55 by Trudy Solo RN) Mother Hypertension Diverticulitis H/O: hysterectomy Father Skin cancer (melanoma) Alcohol abuse Drug abuse Grandmother Diabetes mellitus Grandfather Kidney failure Dialysis patient Diabetes mellitus Stroke Grandmother Breast cancer Grandfather Cancer of nasal cavities Basal cell carcinoma Lung cancer Brother Drug abuse ADHD Depression Social History marital status: unmarried,living together household members: significant other lives independently: Yes caregiver/support person: No housing: house pets and animals: No education level: college (AA degree) 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 ) current occupational exposures/hazards: Yes ([employer]. ) special juan josé needs: No seatbelt use: always do you feel safe at home: Yes Smoking Status: Former smoker Tobacco: How many years used: 9 quit status: has quit before second hand exposure: No alcohol intake: never substance use type: does not use during the past year weight has: remained stable well-balanced diet: daily or most days daily servings fruits/ve-4 caffeine: Yes (2-3 cups of coffee many days, sometimes less. 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 ) frequency: does not exercise Meds Home Medications and Allergies Home Medications Medication Instructions Recorded Confirmed Type promethazine 25 mg tablet 25 mg PO Q6H PRN #30 tab 01/20/21 03/10/21 Rx nystatin 100,000 unit/gram topical 1 applic TOPICAL QID #60 g 02/03/21 03/10/21 Rx powder metoclopramide HCl 10 mg tablet 10 mg PO Q6H PRN #20 tab 02/17/21 03/10/21 Rx Allergies Allergy/AdvReac Type Severity Reaction Status Date / Time pseudoephedrine Allergy Severe Hives on Verified 01/03/21 15:25 chest, face arms adhesive AdvReac Intermediate Hives Verified 01/03/21 15:25 aspirin AdvReac Intermediate GI Verified 01/03/21 15:25 intolerance and pain Exam Const General: cooperative, healthy appearing and comfortable Orientation: alert, awake and oriented x3 Resp Effort & Inspection: normal respiratory effort Auscultation: clear to auscultation bilaterally Cardio Rate: regular rate Rhythm: regular rhythm Heart Sounds: S1 normal, S2 normal and no murmurs GI Inspection: non-distended Palpation: soft and No tender Other: gravid Presentation: vertex Extrem General: no clubbing, cyanosis or edema Objective Labs Result Diagrams: 03/10/21 18:30 03/10/21 18:30 Labs: Laboratory Results - last 24 hr 03/10/21 03/10/21 03/10/21 18:30 18:30 18:30 WBC 14.8 H RBC 3.86 L Hgb 11.5 L Hct 33.3 L MCV 86.3 MCH 29.7 MCHC 34.4 RDW 12.9 Plt Count 224 Neut % (Auto) 79.9 H Lymph % (Auto) 14.7 L Cassia % (Auto) 5.0 Eos % (Auto) 0.3 L Baso % (Auto) 0.1 Neut # (Auto) 16379 H Lymph # (Auto) 2200 Cassia # (Auto) 700 Eos # (Auto) 0 Baso # (Auto) 0 Sodium 136 L Potassium 3.6 Chloride 105 Carbon Dioxide 22 BUN 7 Creatinine 0.49 L Estimated GFR > 60.0 BUN/Creatinine Ratio 14.3 Glucose 92 Calcium 9.7 Total Bilirubin 0.3 AST 33 ALT 18 Alkaline Phosphatase 145 H Total Protein 6.8 Albumin 3.6 Globulin 3.2 Albumin/Globulin Ratio 1.1 SARS-CoV-2 (PCR) Blood Type O Positive Antibody Screen Negative 03/10/21 18:30 WBC RBC Hgb Hct MCV MCH MCHC RDW Plt Count Neut % (Auto) Lymph % (Auto) Cassia % (Auto) Eos % (Auto) Baso % (Auto) Neut # (Auto) Lymph # (Auto) Cassia # (Auto) Eos # (Auto) Baso # (Auto) Sodium Potassium Chloride Carbon Dioxide BUN Creatinine Estimated GFR BUN/Creatinine Ratio Glucose Calcium Total Bilirubin AST ALT Alkaline Phosphatase Total Protein Albumin Globulin Albumin/Globulin Ratio SARS-CoV-2 (PCR) Negative Blood Type Antibody Screen Assessment and Plan Assessment and Plan Assessment and Plan narrative: Leonor Allen is a 25 year old at 37w3d here for IOL due to pre-eclampsia without severe features. BPs remain out of severe range, pt asymptomatic. Received cervidil overnight with minimal cervical change. GBS negative, Rh positive. - Expectant management, anticipate - Monitor BPs closely, no need for MgSO4 at this time - FHT reassuring - Start pitocin, titrate as tolerated - Pt desires natural methods for pain control - GBS negative, no prophylaxis indicated
[2021-03-11] MEDS: LACTATED RINGERS 1,000 ML 100 ML IV (08:54)
[2021-03-11] MEDS: OXYTOCIN PREMIX 30 UNIT/500 ML PLAST..BAG IV (08:55)
[2021-03-11] MEDS: ONDANSETRON 4 MG/2 ML INJ IV ×2 (09:56→17:11)
--- NOTE | 2021-03-11 13:22 | PM.OBPNLAB ---
Date/Time Date Patient Seen: 03/11/21 Time Patient Seen: 13:00 Pain Control Pain control: tolerating well Pelvic Exam Dilation (cm): 1 Effacement (%): 25 station: -2 Amniotic membrane status: Intact Contractions Pitocin rate (mU/min): 12 Contraction frequency (min): 3 Contraction pattern: Irregular Status status: Category l Heart Rate Baseline: 150 Monitor Accelerations: Present Monitor Decelerations: Absent Monitor Variability: Moderate Assessment and Plan Comments: Leonor Allen is a 25 year old at 37w3d here for IOL due to pre-eclampsia without severe features. BPs remain out of severe range, pt asymptomatic. Received cervidil overnight with minimal cervical change. On pitocin, and cervix now with less effacement. After informed consent, dillon placed for ongoing induction. GBS negative, Rh positive. - Expectant management, anticipate - Monitor BPs closely, no need for MgSO4 at this time - FHT reassuring - Dillon in place. Will lower pitocin to 4mU for low-dose pitocin while dillon in place. Placed at 1pm, remove at 1am if does not fall out in the interim - Pt desires natural methods for pain control - GBS negative, no prophylaxis indicated
[2021-03-11] MEDS: CALCIUM CARBONATE 500 MG TAB PO (22:04)
[2021-03-12] MEDS: LACTATED RINGERS 1,000 ML 100 ML IV (00:37)
[2021-03-12] MEDS: ONDANSETRON 4 MG/2 ML INJ IV ×2 (02:14→12:05)
--- NOTE | 2021-03-12 07:57 | PM.OBPNLAB ---
Date/Time Date Patient Seen: 03/12/21 Time Patient Seen: 07:00 Pain Control Pain control: tolerating well Pelvic Exam Dilation (cm): 4 Effacement (%): 60 station: -3 Amniotic membrane status: Intact Comments: After informed consent, AROM performed with production of blood-tinged fluid. Contractions Contraction frequency (min): 4 Contraction pattern: Irregular Contraction intensity: Mild Status status: Category l Heart Rate Baseline: 135 Monitor Decelerations: Absent Monitor Variability: Moderate Assessment and Plan Comments: Leonor Allen is a 25 year old at 37w4d here for IOL due to pre-eclampsia without severe features. BPs remain out of severe range, pt asymptomatic. Received cervidil night #1 with minimal cervical change. Started on pitocin, but due to no progress dillon catheter then placed. Fell out at approximately 12:45am. Pitocin then titrated up. AROM now performed with blood-tinged fluid. GBS negative, Rh positive. - Expectant management, anticipate - Monitor BPs closely, no need for MgSO4 at this time - FHT reassuring - Continue pitocin, titrate as tolerated - Pt desires natural methods for pain control - GBS negative, no prophylaxis indicated
[2021-03-12] MEDS: OXYTOCIN PREMIX 30 UNIT/500 ML PLAST..BAG 200 UNIT IV (20:21)
--- NOTE | 2021-03-12 20:28 | P.PCNOB_ITS ---
Events: Pre-Eclampsia Labor & Delivery Delivery date: 03/12/21 Intrapartal Events: Prolonged 2nd Stage > 2.5 hours Cervical ripening method: per Cervidil protocol Induction method: per pitocin protocol Delivery augmentation: rupture of membranes Delivery monitor: external FHT Route of delivery: Episiotomy description: None L&D Laceration Description: None Estimated blood loss (mL): 200 Anesthesia Type: Epidural Complications: None Narrative: PROCEDURE: at 37w3d presented for IOL for pre-eclampsia and was admitted to Labor and Delivery. She received cervidil for induction, and then was started on pitocin. Due to no significant cervical change, dillon catheter was then placed. This fell out after nearly 12 hours, and th pt was again started on pitocin. The patient progressed through the 1st stage over 7.5 hours. AROM was performed with production of blood-tinged fluid. Pain was controlled with an epidural. The patient progressed through the 2nd stage over 5.5 hours and delivered a viable female infant with APGARs 8/9 at 20:07 via without complications. The baby was noted to be OP presentation. The cord was cut and clamped after it stopped pulsating. The perineum and vagina were inspected with no lacerations. The pts BPs remained in good range throughout her entire labor. PREPROCEDURE DIAGNOSIS: Intrauterine at 37w3d Pre-eclampsia without severe features GBS negative RH positive POSTPROCEDURE DIAGNOSIS: Intrauterine at 37w4d, delivered Same as preprocedure [place] Baby 1: Infant gender: Female Presentation: vertex Position: Right Occiput Posterior Placenta delivery description: Spontaneous Cord Vessel Description: 3 Vessels score (1 min): 8 score (5 min): 9 weight: 7 lb 5.991 oz Plan for aftercare: Routine care
[2021-03-12] MEDS: IBUPROFEN 600 MG TABLET PO (23:28)
[2021-03-13] MEDS: IBUPROFEN 600 MG TABLET PO ×4 (05:25→23:39)
[2021-03-13] MEDS: ACETAMINOPHEN 325 MG TABLET 650 MG PO ×4 (05:25→23:39)
--- NOTE | 2021-03-13 09:40 | P.DS_ITS ---
Discharge Providers Provider Date of admission: 03/10/21 17:45 Discharge Date: 03/13/21 Primary care physician: Lorenzo Rose MD Consults: 03/12/21 21:41 Consult to Cruise Staff Member Routine Comment: Discharge provider: Mindi Osman MD Summary Time Spent with Patient Time attestation: Total time spent providing and/or coordinating discharge services: Objective Labs Result Diagrams: 03/10/21 18:30 03/10/21 18:30 Discharge Plan Discharge Plan Patient Disposition: Home Discharge orders & Medications Prescriptions: Continued nystatin 100,000 unit/gram powder 1 applic topical QID Qty: 60 RF: 2 Discontinued promethazine 25 mg tablet 25 mg PO Q6H PRN (Reason: headache) Qty: 30 RF: 0 metoclopramide HCl 10 mg tablet 10 mg PO Q6H PRN (Reason: headache) Qty: 20 RF: 0 Follow up/Referrals: Lorenzo Rose MD [Primary Care Provider] - Mindi Osman MD [Physician] - 6 Weeks Diet/Activity/Treatments Diet: Diet as Tolerated and Regular Skin/Wound/Dressing Care Report to your healthcare provider any signs of infection, such as:: chills, fever, increased pain and unusual drainage Visit Report/Discharge Packet Instructions: DI for Labor and Delivery, Vaginal Visit Report Forms: Patient Portal/API, Stroke Signs & Symptoms Discharge Data Primary Care Provider: Lorenzo Rose
[2021-03-13] MEDS: PRENATAL VIT,CALC/IRON/FOLIC 1 TABLET 1 TAB PO (11:18)
[2021-03-13] MEDS: DOCUSATE 100 MG CAPSULE 200 MG PO (11:19)
[2021-03-13] MEDS: LANOLIN OINT 7 GM 1 APPLIC TOP (11:19)
[2021-03-13 17:50] VITALS: TEMP 36.8
--- NOTE | 2021-03-13 20:05 | P.PNOB_ITS ---
Subjective - OB Subjective Narrative: The pt is doing well. She is voiding and passing flatus. She has ambulated minimally. She is with the nipple shield. Her lochia is appropriate. Her pain is well controlled. Date Patient Seen: 03/13/21 Time Patient Seen: 08:00 Exam Vital Signs (past 8 hours): - 03/13/21 17:50 Temperature 98.2 F Narrative Exam Narrative: Gen: NAD, sitting comfortably in bed, appears well CV: RRR, no murmurs Resp: clear to auscultation bilaterally Abd: soft, appropriately tender, fundus firm and below the umbilicus, nondist ended Ext: no edema Objective Labs Result Diagrams: 03/10/21 18:30 03/10/21 18:30 Assessment & Plan Plan Comments: Pt is a 25yo PPD#1 s/p without complications. Pt doing well. complicated by pre-eclampsia. BPs have remained normal range after delivery. - Normal care - support Time Spent With Patient Time: Total time spent is greater than 50% in coordination of care (as documented) at patient's floor/unit and/or counseling patient: Time with patient: 15-24 minutes
[2021-03-13] MEDS: DERMOPLAST SPRAY 20% 60 ML 1 SPRAY TOP (22:11)
[2021-03-14] MEDS: ACETAMINOPHEN 325 MG TABLET 650 MG PO (05:31)
[2021-03-14] MEDS: IBUPROFEN 600 MG TABLET PO (05:32)
--- NOTE | 2021-03-14 08:31 | P.DS_ITS ---
Discharge Providers Provider Date of admission: 03/10/21 17:45 Discharge Date: 03/14/21 Primary care physician: Lorenzo Rose MD Consults: 03/12/21 21:41 Consult to Licensed Life And Health Agent Routine Comment: Discharge provider: Mindi Osman MD Summary Hospital Course Date Patient Seen: 03/14/21 Time Patient Seen: 08:00 Diagnoses: 37w4d gestation GBS negative Rh positive Pre-eclampsia without severe features Hospital Course: The patient presented for induction of labor due to preeclampsia without severe features. She received Cervidil, Pitocin, then Andrews catheter for induction. Pitocin was then titrated up and AROM was performed with production of clear fluid., high spontaneous vaginal delivery of viable baby girl in the direct OP presentation after a prolonged 2nd stage. There were no lacerations. , there were no complications. At the time of discharge she was voiding, ambulating, passing flatus without difficulty. Her lochia was decreasing appropriately. Her pain was adequately controlled. She was breast-feeding with good latch. Her blood pressures remained in normal range. She will follow up in clinic in 6 weeks for check. She is undecided regarding contraception. Peripartum Data Infant Delivery Method: Natural Vaginal Laceration Description: None Episiotomy description: None Procedures: Spontaneous vaginal delivery complications: none 1: Gender: Female Disposition of : home (remains hospitalized for phototherapy) Discharge Diagnosis (1) Pre-eclampsia: Status: Acute (2) Spontaneous vaginal delivery: Status: Acute Status at Discharge Cognitive/behavioral status at discharge: oriented Functional status at discharge: independent ambulation Overall status at discharge: patient is progressing back to baseline Time Spent with Patient Time attestation: Total time spent providing and/or coordinating discharge services: Objective Labs Result Diagrams: 03/10/21 18:30 03/10/21 18:30 Exam Narrative Exam Narrative: Gen: NAD, sitting comfortably in bed, appears well CV: RRR, no murmurs Resp: clear to auscultation bilaterally Abd: soft, appropriately tender, fundus firm and below the umbilicus, nondistended Ext: no edema Discharge Plan Discharge Plan Patient Disposition: Home Discharge orders & Medications Prescriptions: Continued nystatin 100,000 unit/gram powder 1 applic topical QID Qty: 60 RF: 2 Discontinued promethazine 25 mg tablet 25 mg PO Q6H PRN (Reason: headache) Qty: 30 RF: 0 metoclopramide HCl 10 mg tablet 10 mg PO Q6H PRN (Reason: headache) Qty: 20 RF: 0 Follow up/Referrals: Lorenzo Rose MD [Primary Care Provider] - Mindi Osman MD [Physician] - 6 Weeks (April 23Wed at 10am for a 6 week post check with dr Osman) Diet/Activity/Treatments Diet: Diet as Tolerated and Regular Skin/Wound/Dressing Care Report to your healthcare provider any signs of infection, such as:: chills, fev er, increased pain and unusual drainage Visit Report/Discharge Packet Instructions: DI for Labor and Delivery, Vaginal Stand Alone Forms: Discharge: Care Visit Report Forms: Patient Portal/API, Stroke Signs & Symptoms Discharge Data Primary Care Provider: Lorenzo Rose
[2021-03-14] MEDS: MEASLES,MUMPS,RUBELLA VACC/PF 0.5 ML VIAL SUBCUT (10:01)
[2021-03-14 10:45] VITALS: BP 117/76; PULSE 86; RESP 14; TEMP 36.6
== END 2021-03-14 16:49 | disposition home or self-care (01) | DRG 807 ==
PROVIDERS: Admitting Provider Family Medicine; PCP Family Medicine; Referring Provider Family Medicine; Visit Provider Family Medicine
DX: O14.14 Severe pre-eclampsia complicating childbirth (principal); Z37.0 Single live birth; Z3A.37 37 weeks gestation of pregnancy; O63.1 Prolonged second stage (of labor); Z20.822 Contact with and (suspected) exposure to COVID-19
CPT/HCPCS: 01967; 36415; 59050; 59200; 59410; 80053; 85025; 86850; 86900; 86901; 87635; C9803; G0379; J2405; J2590

== ENCOUNTER → 2021-03-31 14:41 | Outpatient (ROUT) | payer OTHER, SELFPAY | PROVIDERS: PCP Family Medicine; Visit Provider Family Medicine | DX: O14.90 Unspecified pre-eclampsia, unspecified trimester (principal); R31.9 Hematuria, unspecified; R30.0 Dysuria | CPT/HCPCS: 87086 ==